=== PATIENT | female | born 2000 | race Caucasian/White ===

== ENCOUNTER 2019-09-13 06:44 | Emergency (ER) | payer OTHER ==
[~2019-09-13] VITALS: Ht 165.1 cm; Wt 86.2 kg
[2019-09-13 06:44] VITALS: BP 149/71
--- NOTE | 2019-09-13 06:44 | NUR ---
ALEJANDRO MONCADA, PREBOOK. TAKEN TO CHAIR C
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
--- NOTE | 2019-09-13 06:57 | NUR ---
Dr. Narvaez examining patient.
--- NOTE | 2019-09-13 07:26 | NUR ---
Patient discharged with v/s stable. Patient medically cleared and released in custody in stable condition. Original pre-book form given to officer Serge. Written and verbal after care instructions given and explained to patient. Patient verbalized understanding. Ambulatory with steady gait. All questions addressed prior to discharge. Advised to follow up with PMD.
== END 2019-09-13 07:26 ==
LOC: MED 06:44
DX: Z02.89 Encounter for other administrative examinations (principal); Z79.899 Other long term (current) drug therapy; V89.2XXA Person injured in unspecified motor-vehicle accident, traffic, initial encounter; Y93.89 Activity, other specified; Y92.410 Unspecified street and highway as the place of occurrence of the external cause; Y99.8 Other external cause status
CPT/HCPCS: 99283